=== PATIENT | female | born 1960 | race Caucasian/White ===

== ENCOUNTER 2022-10-09 19:47 | Emergency (ER) | payer MEDICAID ==
[~2022-10-09] VITALS: Ht 157.5 cm; Wt 79.4 kg
[2022-10-09 20:00] VITALS: BP 145/92
--- NOTE | 2022-10-09 20:03 | NUR ---
to lobby a/w bed ambulatory
--- NOTE | 2022-10-09 20:30 | NUR ---
PT TAKEN TO BED 7
--- NOTE | 2022-10-09 20:45 | NUR ---
62 Y/O F PRESENTS WITH R LOWER LEG PAIN AND STATED IT FEELS LIKE ITS SWELLING. PT WAS ON A 3HOUR FLIGHT AND LANDED AROUND 1600, PAIN STARTED AROUND 1630. PT DENIES ANY NVD, NO HEADACHES, A&OX4, SKIN INTACT, ABULATORY, SON AT BEDSIDE. PT STATES SHE TAKES BABY ASPIRIN EVERY OTHER DAY TO PREVENT POSSIBLE PE. PMH- DIABETES, HTN NKA
--- NOTE | 2022-10-09 21:05 | NUR ---
Dr. Mora examining patient.
[2022-10-09] MEDS ORDERED: HYDROcodone/APAP 5/325 MG 1 TAB TAB PO ONE (21:10)
[2022-10-09 21:25] LABS: BASOPHILS % (AUTO) 0.5 % (0.0-2.0); EOSINOPHILS # (AUTO) 0.1 K/uL (0-0.4); EOSINOPHILS % (AUTO) 1.7 % (0.0-4.0); HEMATOCRIT 34.2 % (36-48); HEMOGLOBIN 11.7 g/dL (12.0-16.0); LYMPHOCYTES % (AUTO) 30.9 % (20.5-51.1); MEAN CORPUSCULAR HEMOGLOBIN 28 pg (27-31); MEAN CORPUSCULAR HGB CONC 34 g/dL (33-37); MONOCYTES # (AUTO) 0.6 K/uL (0.8-1.0); MONOCYTES % (AUTO) 9.3 % (1.7-9.3); NEUTROPHILS # (AUTO) 3.7 K/uL (1.8-7.7); NEUTROPHILS % (AUTO) 57.6 % (42.2-75.2); PLATELET COUNT (AUTO) 284 K/uL (140-450); RED BLOOD CELL COUNT(AUTO) 4.12 MIL/uL (4.20-5.40); RED CELL DISTRIBUTION WIDTH 14.6 % (11.6-13.7); WHITE BLOOD COUNT (AUTO) 6.5 K/uL (4.8-10.8)
[2022-10-09 21:44] LABS: ALBUMIN 3.4 g/dL (3.4-5.0); ANION GAP 13.3 (8-16); CARBON DIOXIDE 25.8 mmol/L (21-32); CREATININE 0.7 mg/dL (0.6-1.3); POTASSIUM 4.1 mmol/L (3.5-5.1); TOTAL BILIRUBIN 0.3 mg/dL (0.0-1.0)
--- NOTE | 2022-10-09 22:21 | NUR ---
Ultrasound at bedside.
--- NOTE | 2022-10-10 01:09 | NUR ---
SON BEDSIDE. AWAITING RESULTS FROM ULTRASOUND. RESPIRATIONS EVEN AND UNLABORED
--- NOTE | 2022-10-10 02:30 | NUR ---
Patient discharged with v/s stable. Written and verbal after care instructions given and explained. Patient verbalized understanding. Ambulatory with steady gait. All questions addressed prior to discharge. Advised to follow up with PMD.
== END 2022-10-10 02:30 | disposition home or self-care (01) ==
LOC: MED 19:47
DX: S86.811A Strain of other muscle(s) and tendon(s) at lower leg level, right leg, initial encounter (principal); X58.XXXA Exposure to other specified factors, initial encounter; Y93.89 Activity, other specified; Y92.89 Other specified places as the place of occurrence of the external cause; Y99.8 Other external cause status
CPT/HCPCS: 36415; 80053; 85025; 93970; 99284; Q0092